=== PATIENT | female | born 1960 | race Caucasian/White ===

== ENCOUNTER → 2023-05-26 11:49 | Outpatient (CLI) | payer OTHER, MEDICAID, SELFPAY ==
--- NOTE | 2023-05-26 11:54 | DI.MRI.S_ITS ---
PROCEDURE: MR KNEE LT WO CON INDICATIONS: CHRONIC PAIN OF LEFT KNEE TECHNIQUE: Noncontrast sagittal PD fast spin echo and T2 fast spin echo with fat saturation, sagittal 3-D FLASH with fat saturation; coronal T1 spin echo and PD fast spin echo with fat saturation, and axial PD fast spin echo with fat saturation through the knee. COMPARISON: None. FINDINGS: Image quality: Excellent. Menisci: The medial and lateral menisci demonstrate normal morphology and internal signal. The meniscal root ligaments appear intact. Cruciate ligaments: The anterior and posterior cruciate ligaments appear intact. Medial structures: The medial collateral ligament appears mildly thickened. Visualized portions of the pes anserinus tendons appear normal. No abnormal bursal fluid. Lateral structures: The lateral collateral ligament, long and short heads of the biceps femoris tendon appear intact. The popliteus tendon appears normal. Iliotibial band appears normal. Anterior structures: The quadriceps and patellar tendons appear intact. Patellar alignment is normal. No femoral trochlear dysplasia or ventral trochlear prominence. No edema in the infrapatellar fat pad. Bones and cartilage: No bone marrow contusions or fractures. 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 Joint space: There is small knee joint fluid. There is a small bakers cyst measures 1.8 x 1.6 x 3.5 cm in size. Normal appearing synovial plicae are incidentally noted. IMPRESSION: 1. Low-grade MCL sprain. 2. Mild tricompartmental osteoarthritis and low-grade chondromalacia. No fracture or dislocation. Small joint effusion and a small Sears's cyst as above. No loose bodies. 3. The cruciate ligaments are intact. 4. No evidence of focal meniscal tear. Dictated by: Catarino Chatterjee M.D. on 05/26/2023 at 16:35 Approved by: Catarino Chatterjee M.D. on 05/26/2023 at 16:38
== END ==
PROVIDERS: Family Provider Nurse Practitioner; PCP Nurse Practitioner; Referring Provider Student in an Organized Health Care Education/Training Program; Visit Provider Student in an Organized Health Care Education/Training Program
DX: S83.412A Sprain of medial collateral ligament of left knee, initial encounter (principal); M17.12 Unilateral primary osteoarthritis, left knee; M94.262 Chondromalacia, left knee; M25.462 Effusion, left knee; M71.22 Synovial cyst of popliteal space [Baker], left knee; M25.562 Pain in left knee; G89.29 Other chronic pain
CPT/HCPCS: 73721

== ENCOUNTER 2023-08-30 22:28 | Emergency (ER) | payer OTHER, MEDICAID, SELFPAY ==
[2023-08-30 22:34] VITALS: BP 188/88; PULSE 106; RESP 16; TEMP 36.6; O2SAT 97; BMI 34.1
[2023-08-30 23:44] LABS: Bacteria Urine Few (2-10); RBC Urine 1-5/HPF (0-5/HPF); Squamous Epithelial Cell Urine 1-5 /HPF (0-5/HPF); Urine Volume 10mL (spun)
[2023-08-30 23:45] LABS: Culture Indicated Urine Specimen Cultured; WBC Urine 5-10/HPF (0-5/HPF)
--- NOTE | 2023-08-31 00:21 | ED.GENADULT ---
HPI - General Adult General Chief complaint: Urogenital-Female Stated complaint: post facial surg/poss infection/Peeing blood/UTI Time Seen by Provider: 08/31/23 00:00 Source: patient Mode of arrival: Ambulatory History of Present Illness HPI narrative: Patient is a 63-year-old female who recently underwent a procedure to remove a skin cancer for the left side of her cheek. She stated that there appears to be several bumps around the area she was concerned that potentially there was an infection. Also today she started to have symptoms that were consistent with a urinary tract infection. Had blood in her urine. Urinary frequency and urgency. She states the blood has actually improved. She did a home urinalysis test which showed that she was positive for an infection. Related Data Home Medications Medication Instructions Recorded Confirmed Fish Oil (Fish Oil 500 MG Softgel) 500 mg PO PRN ##0 08/23/12 [CQ10] ##0 04/01/16 [fish oil] ##0 04/01/16 zinc sulfate 25 mg zinc (110 mg) 110 mg PO Q DAY ##0 07/08/16 tablet (Orazinc) amlodipine 10 mg tablet 10 mg PO DAILY 08/31/23 08/31/23 hydrochlorothiazide 25 mg tablet 25 mg PO DAILY 08/31/23 08/31/23 hydrochlorothiazide 25 mg tablet 25 mg PO DAILY 08/31/23 08/31/23 potassium chloride 10 mEq 20 meq PO DAILY 08/31/23 08/31/23 tablet,extended release Previous Rx's Medication Instructions Recorded losartan 25 mg tablet 25 mg PO QDAY #30 tabs 04/01/16 cephalexin 500 mg capsule 500 mg PO BID 7 days #14 caps 08/31/23 Allergies Allergy/AdvReac Type Severity Reaction Status Date / Time [id number] Reductase Allergy Intermediate severe Verified 08/31/23 00:30 Inhibitor myalgias [[id number] REDUCTASE INHIBITOR] clindamycin [CLINDAMYCIN] Allergy Mild GI UPSET Verified 08/31/23 00:30 codeine [CODEINE] Allergy Mild HIVES/PURIT Verified 08/31/23 00:30 IS sulfite [SULFITE] Allergy Mild RASH Verified 08/31/23 00:30 Review of Systems ENT Ears, Nose, Mouth, and Throat: Reports system reviewed and no additional complaints, except as documented Genitourinary Genitourinary: Reports system reviewed and no additional complaints, except as documented Integumentary/Breasts Skin/Breast: Reports system reviewed and no additional complaints, except as documented Patient History Family History (Updated 11/16/16 @ 00:00 by Conversion Provider) Brother Age: 56 Hypertension High cholesterol Mother Age: 93 Breast cancer Hypertension Social History Smoking Status: Never smoker Smoking Status: Never smoker alcohol intake frequency: holidays/special occasions only Alcohol type: beer Substance Use Type: does not use Exam Initial Vital Signs Initial Vital Signs: Vital Signs Temperature 97.9 F 08/30/23 22:34 Pulse Rate 106 H 08/30/23 22:34 Respiratory Rate 16 08/30/23 22:34 Blood Pressure 188/88 H 08/30/23 22:34 Pulse Oximetry 97 08/30/23 22:34 Oxygen Delivery Method Room Air 08/30/23 22:34 GI Inspection: normal to inspection and non-distended Palpation: soft and No tender Skin Other: 1 cm surgical incision on the left cheek which appears well. No surrounding erythema. No pustules. No vesicles. Course Orders Ordered: ED Orders 08/30/23 23:05 Urine Culture Stat Urine Microscopic Stat Discontinued Medications Cephalexin HCl (Cephalexin 250 Mg Capsule) 500 mg PO NOW ONE Stop: 08/31/23 00:23 Last Admin: 08/31/23 00:28 Dose: 500 mg Documented By: AB Vital Signs Vital signs: Vital Signs - 8 hr 08/30/23 22:34 08/31/23 00:23 08/31/23 00:24 Temperature 97.9 F Pulse Rate 106 H 88 Respiratory Rate 16 Blood Pressure 188/88 H 172/83 H Pulse Oximetry 97 96 Oxygen Delivery Method Room Air Room Air 08/31/23 00:24 Temperature Pulse Rate 87 Respiratory Rate Blood Pressure Pulse Oximetry 98 Oxygen Delivery Method Room Air Medical Decision Making Lab Data Labs: Lab Results 08/30/23 Range/Units 23:05 Urine RBC 1-5/hpf (0-5/HPF) Urine WBC 5-10/hpf H (0-5/HPF) Ur Squamous Epith Cells 1-5 /hpf (0-5/HPF) Urine Bacteria Few (2-10) H (None) Ur Culture Indicated? Specimen cultured Vol Urine Centrifuged 10ml (spun) Urine Dip Bedside Urine Glucose Negative Bedside Urine Bilirubin - Negative Bedside Urine Ketone - Negative Urine Specific Reading 1.010 Bedside Urine Occult Blood +++ Bedside Urine pH 6.0 Bedside Urine Protein - Negative Bedside Urine Urobilinogen - Negative Bedside Urine Nitrite - Negative Bedside Urine Leukocytes +/- 15 Esterase Point of care testing: Urine Dip Bedside Urine Glucose Negative Bedside Urine Bilirubin - Negative Bedside Urine Ketone - Negative Urine Specific Reading 1.010 Bedside Urine Occult Blood +++ Bedside Urine pH 6.0 Bedside Urine Protein - Negative Bedside Urine Urobilinogen - Negative Bedside Urine Nitrite - Negative Bedside Urine Leukocytes +/- 15 Esterase MDM Narrative Medical decision making narrative: Given her symptoms and the urinalysis today we will treat her with antibiotics for a urinary tract infection. She was tolerating oral intake. Low suspicion for pyelo. The surgical incision to her left cheek appears very well. There was no signs of dehiscence of the wound. No signs of infection. We will place her on Keflex. First dose here in the ER and a prescription was sent to the pharmacy of her choice. Discharge Plan Departure Patient Disposition: Home Clinical Impression: Urinary tract infection Instructions: DI for Urinary Tract Infection (UTI) Activity Restrictions/Additional Instructions: A prescription for antibiotics was sent to [facility]. Recommend that you take it as directed. Contact your primary doctor for a follow-up. Return to the emergency department for worsening symptoms Prescriptions: New cephalexin 500 mg capsule 500 mg PO BID 7 Days Qty: 14 0RF No Action Fish Oil (Fish Oil 500 MG Softgel) 500 mg PO PRN Qty: 0 [CQ10] Qty: 0 [fish oil] Qty: 0 losartan 25 MG tablet 25 mg PO QDAY Qty: 30 1RF zinc sulfate [Orazinc] 110 MG tablet 110 mg PO Q DAY Qty: 0 amlodipine 10 mg tablet 10 mg PO DAILY hydrochlorothiazide 25 mg tablet 25 mg PO DAILY potassium chloride 10 mEq tablet extended release 20 meq PO DAILY hydrochlorothiazide 25 mg tablet 25 mg PO DAILY Referrals: Chloé Martin ARNP [Primary Care Provider] - Stand Alone Forms: Patient Portal/API
[2023-08-31 00:23] VITALS: PULSE 88; O2SAT 96
[2023-08-31 00:24] VITALS: BP 172/83; PULSE 87; O2SAT 98
[2023-08-31] MEDS: cephALEXin 250 MG CAPSULE 500 MG PO (00:28)
== END 2023-08-31 00:38 | disposition home or self-care (01) ==
PROVIDERS: Emergency Provider Emergency Medicine; Family Provider Nurse Practitioner; PCP Nurse Practitioner
DX: N39.0 Urinary tract infection, site not specified (principal)
CPT/HCPCS: 81003; 81015; 87077; 87086; 87186; 99283